=== PATIENT | female | born 1990 | race American Indian/Alaskan Native ===

== ENCOUNTER 2017-11-28 16:00 | Emergency (ER) | payer OTHER ==
[2017-11-28 16:05] VITALS: BP 119/55; PULSE 94; RESP 16; TEMP 99; O2SAT 100
--- NOTE | 2017-11-28 16:16 | ED PDOC ---
Syncope/Near Syncope/Dizziness Time Seen by Provider: 11/28/17 16:16 Chief Complaint (Nursing): Syncope Chief Complaint (Provider): syncope, head injury History Per: Patient Additional Complaint(s): 27-year-old female no past medical history presents to emergency department for evaluation of syncopal episode sustained at 7 AM. Patient was waiting for the bus when she passed out. Patient was woken up by a bystander who asked if she was okay. Patient is not sure how long she passed out for. She complains of mild headache after hitting her head against the ground. Patient states before she left the house to walk to the bus she did not have breakfast but went home and ate and felt better. She also reports past couple of days she has had flulike symptoms including subjective fever, chills, cough and body aches. Concern for . She states that several people at work have been sick with flu-like symptoms. She rates current headache as a 6 out of 10, she denies nausea, vomiting, dizziness or vision changes. PmD: none Past Medical History Reviewed: Historical Data, Nursing Documentation, Vital Signs Vital Signs: Last Vital Signs Temp 99.0 F 11/28/17 16:02 Pulse 94 H 11/28/17 16:02 Resp 16 11/28/17 16:02 BP 119/55 L 11/28/17 16:02 Pulse Ox 100 11/28/17 16:02 - Medical History PMH: No Chronic Diseases - Surgical History Surgical History: No Surg Hx - Family History Family History: States: No Known Family Hx - Living Arrangements Living Arrangements: With Family - Social History Current smoker - smoking cessation education provided: No Alcohol: Occasional Drugs: Cannabis - Allergies Allergies/Adverse Reactions: Allergies Allergy/AdvReac Type Severity Reaction Status Date / Time No Known Allergies Allergy Verified 11/28/17 16:02 Review of Systems ROS Statement: Except As Marked, All Systems Reviewed And Found Negative Constitutional: Positive for: Fever (subjective ), Chills, Other (bodyaches) Cardiovascular: Negative for: Chest Pain Respiratory: Positive for: Cough Gastrointestinal: Negative for: Nausea, Vomiting Neurological: Positive for: Headache, Other (head injury with LOC, syncopal episode). Negative for: Weakness, Numbness, Incoordination, Change in Speech, Confusion, Seizures, Altered Mental Status Physical Exam - Reviewed Nursing Documentation Reviewed: Yes Vital Signs Reviewed: Yes - Physical Exam Appears: Positive for: Well, Non-toxic, No Acute Distress Head Exam: Positive for: ATRAUMATIC, NORMAL INSPECTION Skin: Negative for: Rash Eye Exam: Positive for: Normal appearance Cardiovascular/Chest: Positive for: Regular Rate, Rhythm Respiratory: Positive for: Normal Breath Sounds. Negative for: Respiratory Distress Extremity: Positive for: Normal ROM Neurologic/Psych: Positive for: Alert, Oriented, Gait (steady) - Laboratory Results Result Diagrams: 11/28/17 17:28 11/28/17 17:28 Urine POC: Negative - ECG Interpretation Of ECG: NSR 79 bpm, no acute finding, reviewed by PA and ED attending O2 Sat by Pulse Oximetry: 100 Pulse Ox Interpretation: Normal - Other Rad CT head X-Ray: Read By Radiologist X-Ray Interpretation: no acute finding Medical Decision Making Medical Decision Makin27 year old here for eval s/p syncopal episode, also with flu like symptoms for the past 2 days Plan: CT head CBC CMP EKG Trop test PO tylenol Flu swab Patient feels better, she is aware of all diagnostic testing results, all questions answered. Patient was instructed to take Tylenol as needed for pain. She states she has no primary doctor, referral was provided. Disposition - Clinical Impression Clinical Impression: Syncope, Viral illness - Patient ED Disposition Is Patient to be Admitted: No Counseled Patient/Family Regarding: Studies Performed, Diagnosis, Need For Followup - Disposition Referrals: Zion Gatica MD [Staff Provider] - Disposition: Routine/Home Disposition Time: 18:32 Condition: STABLE Additional Instructions: Take Tylenol every 4-6 hours for pain. Drink plenty of fluids and get rest. Follow up with primary care doctor, referral for primary care doctor was provided. Instructions: Syncope (DC), Viral Syndrome (ED) Forms: [employer] ([place]i) Results - Lab Results Lab Results: 11/28/17 11/28/17 11/28/17 17:28 17:28 17:28 WBC 4.3 L RBC 4.05 Hgb 10.6 L Hct 33.2 L MCV 82.1 MCH 26.3 L MCHC 32.0 L RDW 17.7 H Plt Count 238 MPV 9.8 Neut % (Auto) 52.0 Lymph % (Auto) 35.8 Union % (Auto) 11.6 H Eos % (Auto) 0.4 Baso % (Auto) 0.2 Neut # 2.2 Lymph # 1.5 Union # 0.5 Eos # 0.0 Baso # 0.0 Sodium 142 Potassium 3.9 Chloride 102 Carbon Dioxide 24 Anion Gap 20 BUN 9 Creatinine 0.8 Est GFR ( Amer) > 60 Est GFR (Non-Af Amer) > 60 Random Glucose 92 Calcium 9.0 Total Bilirubin 0.4 AST 26 ALT 32 Alkaline Phosphatase 72 Troponin I < 0.0120 Total Protein 8.6 H Albumin 4.7 Globulin 3.9 Albumin/Globulin Ratio 1.2 Influenza Typ A,B (EIA) Negative for flu a/b
[2017-11-28 17:36] LABS: BASO % 0.2 % (0.0-2.0); EOS % 0.4 % (0.0-4.0); HEMOGLOBIN 10.6 g/dL (12.0-16.0); LYMPH # 1.5 K/uL (1.0-4.3); LYMPH % 35.8 % (20.0-40.0); MEAN CELL VOLUME 82.1 fl (81.0-99.0); MEAN CORPUSCULAR HEMOGLOBIN 26.3 pg (27.0-31.0); MEAN PLATELET VOLUME 9.8 fl (7.2-11.7); MONO # 0.5 K/uL (0.0-0.8); MONO % 11.6 % (0.0-10.0); NEUT # 2.2 K/uL (1.8-7.0); NRBC % 0.1 % (0.0-0.0); RBC 4.05 Mil/uL (3.80-5.20); RED CELL DISTRIBUTION WIDTH 17.7 % (11.5-14.5); WHITE BLOOD COUNT 4.3 K/uL (4.8-10.8)
[2017-11-28 17:45] LABS: ALBUMIN 4.7 g/dL (3.5-5.0); ALT/SGPT 32 U/L (9-52); AST/SGOT 26 U/L (14-36); BLOOD UREA NITROGEN 9 mg/dl (7-17); GFR AFRICAN-AMERICAN > 60; GFR NON-AFRICAN AMERICAN > 60
[2017-11-28 17:51] LABS: ALB/GLOB RATIO 1.2 (1.0-2.1)
--- NOTE | 2017-11-29 11:02 | CT ---
PROCEDURE: CT HEAD WITHOUT CONTRAST. HISTORY: syncope COMPARISON: None available. TECHNIQUE: Axial computed tomography images were obtained through the head/brain without intravenous contrast. Radiation dose: Total exam DLP = 1193.04 mGy-cm. This CT exam was performed using one or more of the following dose reduction techniques: Automated exposure control, adjustment of the mA and/or kV according to patient size, and/or use of iterative reconstruction technique. FINDINGS: HEMORRHAGE: No intracranial hemorrhage. BRAIN: No mass effect or edema. No atrophy or chronic microvascular ischemic changes. VENTRICLES: Unremarkable. No hydrocephalus. CALVARIUM: Unremarkable. PARANASAL SINUSES: Chronic ethmoid air cell disease. Nonvisualization of the maxillary, sphenoid air cells. Hypoplastic frontal sinuses. MASTOID AIR CELLS: Unremarkable as visualized. No inflammatory changes. OTHER FINDINGS: None. IMPRESSION: No acute intracranial abnormalities. No significant findings to account for the clinical presentation.
--- NOTE | 2017-11-29 18:28 | CARD ---
APPROVED REPORT EKG Measurement Heart [id number] <Conclusion> Normal sinus rhythm Normal ECG
== END 2017-11-28 19:02 | disposition home or self-care (01) ==
LOC: H.ER 16:00
DX: R55 Syncope and collapse (principal); S09.90XA Unspecified injury of head, initial encounter; W19.XXXA Unspecified fall, initial encounter; Y92.89 Other specified places as the place of occurrence of the external cause; B34.9 Viral infection, unspecified

== ENCOUNTER 2018-03-09 08:26 | Emergency (ER) | payer OTHER ==
[2018-03-09 08:35] VITALS: TEMP 98; BMI 27.8
--- NOTE | 2018-03-09 09:42 | ED PDOC ---
HPI: Female Pain Time Seen by Provider: 03/09/18 09:12 Chief Complaint (Nursing): Female Genitourinary Chief Complaint (Provider): Vaginal spotting History Per: Patient History/Exam Limitations: no limitations Onset/Duration Of Symptoms: Days (yesterday) Current Symptoms Are (Timing): Still Present Additional Complaint(s): Pt. with pelvic pain and vaginal bleeding. Is preg. No nausea, vomit, dysuria , weakness. No chest pain. Past Medical History Reviewed: Nursing Documentation, Vital Signs Vital Signs: Last Vital Signs Temp 98 F 03/09/18 08:34 Pulse 88 03/09/18 08:34 Resp BP 112/73 03/09/18 08:34 Pulse Ox 100 03/09/18 08:34 - Medical History PMH: No Chronic Diseases - Surgical History Surgical History: No Surg Hx - Family History Family History: States: Unknown Family Hx - Home Medications Home Medications: Ambulatory Orders Medication Instructions Recorded No Known Home Med 03/09/18 - Allergies Allergies/Adverse Reactions: Allergies Allergy/AdvReac Type Severity Reaction Status Date / Time No Known Allergies Allergy Verified 03/09/18 08:57 Review of Systems ROS Statement: Except As Marked, All Systems Reviewed And Found Negative Genitourinary Female: Positive for: Vaginal Bleeding, Pelvic Pain Physical Exam - Reviewed Nursing Documentation Reviewed: Yes Vital Signs Reviewed: Yes - Physical Exam Appears: Positive for: Non-toxic, No Acute Distress Head Exam: Positive for: ATRAUMATIC, NORMAL INSPECTION, NORMOCEPHALIC Skin: Positive for: Normal Color, Warm, DRY Eye Exam: Positive for: EOMI, Normal appearance, PERRL ENT: Positive for: Normal ENT Inspection Neck: Positive for: Normal, Painless ROM Cardiovascular/Chest: Positive for: Regular Rate, Rhythm Respiratory: Positive for: CNT, Normal Breath Sounds Gastrointestinal/Abdominal: Positive for: Soft, Tenderness (across pelvic) Back: Positive for: Normal Inspection. Negative for: L CVA Tenderness, R CVA Tenderness Extremity: Positive for: Normal ROM. Negative for: Tenderness, Pedal Edema Neurologic/Psych: Positive for: Alert, Oriented - Laboratory Results Result Diagrams: 03/09/18 09:47 03/09/18 09:47 Interpretation Of Abn Labs: a+ - ECG O2 Sat by Pulse Oximetry: 100 Pulse Ox Interpretation: Normal - CT Scan/US US Other Rad Studies (CT/US): Read By Radiologist Other Rad Interpretation: SLIUP - Progress ED Course And Treament: 1240: Stable. AAOx3. Fu with pcp. Disposition - Clinical Impression Clinical Impression: Subchorionic bleed, Threatened Counseled Patient/Family Regarding: Studies Performed, Diagnosis, Need For Followup - Disposition [facility] - [facility]18 Disposition: Routine/Home Disposition Time: 12:42 Condition: STABLE Additional Instructions: Return if not better in 3 days. Instructions: Threatened Miscarriage Forms: [facility] (M[place]ese), [facility] ED School/Work Excuse
[2018-03-09 09:54] LABS: BASO % 0.3 % (0.0-2.0); EOS # 0.1 K/uL (0.0-0.7); EOS % 1.1 % (0.0-4.0); HEMOGLOBIN 10.7 g/dL (12.0-16.0); LYMPH # 1.5 K/uL (1.0-4.3); MEAN CELL VOLUME 80.7 fl (81.0-99.0); MEAN CORPUSCULAR HEMOGLOBIN 26.6 pg (27.0-31.0); MEAN PLATELET VOLUME 9.5 fl (7.2-11.7); MONO # 0.4 K/uL (0.0-0.8); MONO % 6.6 % (0.0-10.0); NEUT # 4.5 K/uL (1.8-7.0); NRBC % 0.1 % (0.0-0.0); RBC 4.03 Mil/uL (3.80-5.20); WHITE BLOOD COUNT 6.6 K/uL (4.8-10.8)
[2018-03-09 11:59] LABS: ALB/GLOB RATIO 1.1 (1.0-2.1); ALBUMIN 4.2 g/dL (3.5-5.0); ALT/SGPT 25 U/L (9-52); AST/SGOT 29 U/L (14-36); BLOOD UREA NITROGEN 5 mg/dl (7-17); GFR AFRICAN-AMERICAN > 60; GFR NON-AFRICAN AMERICAN > 60
--- NOTE | 2018-03-09 12:17 | US ---
HISTORY: preg and pain COMPARISON: None available. TECHNIQUE: Transabdominal/transvaginal sonographic evaluation of the pelvis performed. FINDINGS: UTERUS: Anteverted measuring approximately 10.4 x6 0.3 x 7.0 cm. Normal in size and appearance. No fibroid or other mass lesion seen. ENDOMETRIUM: There is a single living intrauterine gestation with the following measurements: Gestational sac: = MSD = 2.53 cm = 7 weeks 2 days Yolk sac: 0.33 pole: CRL = 1.25 cm = 7 weeks 4 days Average ultrasound age = 7 weeks 3 days 0 weeks 4 days Heart motion: 165 BPM CATARINA based on AUA: 10/23/2018 There appears to be a possible small subchorionic hemorrhage measuring approximately 2 point 8 x 1.3 cm in CERVIX: Cervix appears somewhat shortened but close measuring approximately 1.57 cm. RIGHT OVARY: Measures 6.1 x 4.5 x 3.2 cm with cyst, possibly representing corpus luteum cyst of , measuring 3.2 x 3.1 x 2.4 cm. No solid mass. Normal flow. LEFT OVARY: Measures 3.0 x 2.5 x 2.1 cm. No solid mass. Normal flow. FREE FLUID: No significant free fluid noted. OTHER FINDINGS: None. IMPRESSION: Living intrauterine gestation numb estimated at approximately 7 weeks 3 days 0 weeks 4 days. Heart rate document at 165 BPM. Suspect small subchorionic hemorrhage as detailed above. Followup OB ultrasound at interval recommended to assess resolution.
[2018-03-09 13:20] VITALS: BP 107/66; PULSE 79; RESP 18; O2SAT 98
== END 2018-03-09 13:25 | disposition home or self-care (01) ==
LOC: H.ER 08:26
DX: O20.0 Threatened abortion (principal); Z3A.01 Less than 8 weeks gestation of pregnancy